=== PATIENT | male | born 1980 | race Two or more races ===

== ENCOUNTER 2017-07-11 22:25 | Emergency (ER) | payer OTHER ==
[2017-07-11] MEDS ORDERED: KETOROLAC 15 MG/1 ML SDV IVP ONE (22:34)
[2017-07-11] MEDS ORDERED: fentaNYL 100 MCG/2 ML INJ IVP ONE (22:34)
[2017-07-11] MEDS ORDERED: DIAZEPAM 5 MG TAB PO ONE (22:34)
[2017-07-11 22:35] VITALS: RESP 18
--- NOTE | 2017-07-11 22:36 | EDPHY ---
H & P Stated Complaint: low back pain after work today Time Seen by Provider: 07/11/17 22:30 HPI/ROS: HPI CHIEF COMPLAINT: Low back pain HISTORY OF PRESENT ILLNESS: Patient is a 37-year-old male, incarcerated, presents emergency room with low back pain. 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 He through this 1 piece of wood and immediately had low back pain. It is not midline. His paravertebral on left side. He describes pain is achy rather severe left-sided paravertebral lumbar region. No midline pain. No saddle anesthesia. No bowel bladder incontinence. No focal weakness. No numbness or tingling. No direct trauma to his back. Past Medical History: History of chronic back pain low back injuries. Past Surgical History: No surgical history Social History: Incarcerated, denies drugs alcohol tobacco. Family History: Noncontributory ROS REVIEW OF SYSTEMS: A comprehensive 10 point review of systems is otherwise negative aside from elements mentioned in the history of present illness. Exam Constitutional triage nursing summary reviewed, vital signs reviewed, awake/ alert. Eyes normal conjunctivae and sclera, EOMI, PERRLA. HENT normal inspection, atraumatic, moist mucus membranes, no epistaxis, neck supple/ no meningismus, no raccoon eyes. Respiratory clear to auscultation bilaterally, normal breath sounds, no respiratory distress, no wheezing. Cardiovascular rate normal, regular rhythm, no murmur, no edema, distal pulses normal. Gastrointestinal soft, non-tender, no rebound, no guarding, normal bowel sounds, no distension, no pulsatile mass. Genitourinary no CVA tenderness. Musculoskeletal back exam: No midline lumbar back pain. No step-offs no crepitus. On the left lumbar region paravertebral on the left side there is a muscle spasm present. No crepitus. No saddle anesthesia. No leg weakness., full range of motion, no calf swelling, no tenderness of extremities, no meningismus, good pulses, neurovascularly intact. Skin pink, warm, & dry, no rash, skin atraumatic. Neurologic awake, alert and oriented x 3, AAOx3, moves all 4 extremities equally, motor intact, sensory intact, CN II-XII intact, normal cerebellar, normal vision, normal speech. Psychiatric normal mood/affect. Heme/Lymph/Immune no lymphadenopathy. Differential Diagnosis: Includes but is not limited to in a particular order low back muscle spasm, musculoskeletal strain, disc herniation, annular tear, compression fracture, malalignment. Medical Decision Making: Plan for this patient p.o. Valium for muscle relaxation, IV fentanyl for pain control, IV Zofran for nausea. Lumbar spine x- ray and re-evaluate. Re-evaluation: X-ray lumbar spine is been reviewed no compression fracture no malalignment. Patient feeling much better after pain control and Valium here in the emergency room. His neurological exam is intact. He has no leg weakness no saddle anesthesia no bowel bladder incontinence. I do not feel that he needs any further imaging. I will recommend he takes ibuprofen and ice his back and rest over the next week. 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 I will give him an excuse for this as he is incarcerated. Source: Patient, EMS - Personal History Current Tetanus/Diphtheria Vaccine: Yes Current Tetanus Diphtheria and Acellular Pertussis (TDAP): Yes - Medical/Surgical History Hx Asthma: No Hx Chronic Respiratory Disease: No Hx Diabetes: No Hx Cardiac Disease: No Hx Renal Disease: No Hx Cirrhosis: No Hx Alcoholism: No Hx HIV/AIDS: No Hx Splenectomy or Spleen Trauma: No - Social History Smoking Status: Former smoker Constitutional: Initial Vital Signs Temperature (C) 36.7 C 07/11/17 22:25 Heart Rate 68 07/11/17 22:25 Respiratory Rate 18 07/11/17 22:25 Blood Pressure 129/74 H 07/11/17 22:25 O2 Sat (%) 96 07/11/17 22:25 O2 Delivery Mode Room Air Allergies/Adverse Reactions: No Known Allergies Allergy (Unverified 07/11/17 22:31) Home Medications: Medication Instructions Recorded Ibuprofen [Motrin (*)] 800 mg PO Q6-8PRN #10 tab 07/12/17 Medical Decision Making - Diagnostics Imaging Results: Imaging Impressions Lumbar Spine X-Ray 07/11/17 22:34 Impression: Mild degenerative disk disease. No compression fracture or pars defect. - Data Points Medications Given: Discontinued Medications Diazepam (Valium) 5 mg PO EDNOW ONE Stop: 07/11/17 22:35 Last Admin: 07/11/17 23:00 Dose: 5 mg Fentanyl (Sublimaze) 50 mcg IVP EDNOW ONE Stop: 07/11/17 22:35 Last Admin: 07/11/17 23:00 Dose: 50 mcg Ketorolac Tromethamine (Toradol) 15 mg IVP EDNOW ONE Stop: 07/11/17 22:35 Last Admin: 07/11/17 22:59 Dose: 15 mg Departure - Departure Disposition: Home, Routine, Self-Care Clinical Impression: Low back strain Qualifiers: Encounter type: initial encounter Qualified Code(s): S39.012A - Strain of muscle, fascia and tendon of lower back, initial encounter Condition: Good Instructions: Low Back Strain (ED) Additional Instructions: 1. Ice your back. 2. Anti-inflammatory pain medicine for pain control Tylenol Motrin. 3. No manual labor for 1 week. Referrals: NONE *PRIMARY CARE P,. [Primary Care Provider] - As per Instructions Stand Alone Forms: Work Excuse Prescriptions: Ibuprofen [Motrin (*)] 800 mg PO Q6-8PRN #10 tab
[2017-07-11 23:51] VITALS: O2SAT 95
[2017-07-12 00:13] VITALS: BP 124/71; PULSE 63; TEMP 98.4
== END 2017-07-12 00:15 ==
DX: S39.012A Strain of muscle, fascia and tendon of lower back, initial encounter (principal); Z87.891 Personal history of nicotine dependence; X50.9XXA Other and unspecified overexertion or strenuous movements or postures, initial encounter; Y99.8 Other external cause status; Y93.89 Activity, other specified
CPT/HCPCS: 96374; J1885; J3010